=== PATIENT | female | born 1940 | race Caucasian/White ===

== ENCOUNTER → 2018-02-26 | Outpatient (CLI) | payer OTHER | LOC: BHFA 10:00 | PROVIDERS: ATTEND Internal Medicine | DX: R00.2 Palpitations (principal); R06.02 Shortness of breath; R07.9 Chest pain, unspecified; R53.83 Other fatigue ==

== ENCOUNTER → 2018-03-06 | Outpatient (CLI) | payer OTHER | LOC: BHFA 10:00 | PROVIDERS: ATTEND Internal Medicine Cardiovascular Disease | DX: R07.9 Chest pain, unspecified (principal); R00.2 Palpitations ==

== ENCOUNTER → 2018-09-29 | Outpatient (CLI) | payer OTHER | LOC: CIMAGING 14:27 | PROVIDERS: ATTEND Family Medicine | DX: R91.8 Other nonspecific abnormal finding of lung field (principal); R42 Dizziness and giddiness; R53.83 Other fatigue; Z87.891 Personal history of nicotine dependence | CPT/HCPCS: 36415-PO; 71046-PO ==

== ENCOUNTER → 2018-10-09 | Outpatient (CLI) | payer OTHER ==
[~2018-10-09] MED LIST: IOHEXOL 300 mgI/ML (OMNIPAQUE) 150 ML BTL IV ONE
== END ==
LOC: FIMAGING 10:06
PROVIDERS: ATTEND Family Medicine
DX: R91.8 Other nonspecific abnormal finding of lung field (principal); R93.89 Abnormal findings on diagnostic imaging of other specified body structures; J90 Pleural effusion, not elsewhere classified
CPT/HCPCS: 71260; Q9967

== ENCOUNTER 2018-10-20 10:00 | Day surgery (SDC) | payer OTHER ==
[2018-10-20] MEDS ORDERED: MIDAZOLAM 2 MG/2 ML VIAL ONE (10:33)
[2018-10-20] MEDS ORDERED: fentaNYL 100 MCG/2 ML INJ ONE (10:34)
[2018-10-20] MEDS ORDERED: GLUCAGON HCL 1 MG VIAL IVP PRN (11:04)
[2018-10-20] MEDS ORDERED: MIDAZOLAM 2 MG/2 ML VIAL IVP PRN (11:04)
[2018-10-20] MEDS ORDERED: fentaNYL 100 MCG/2 ML INJ IVP PRN (11:04)
[2018-10-20] MEDS ORDERED: NALOXONE HCL 0.4 MG/ML INJ IVP PRN (11:04)
[2018-10-20] MEDS ORDERED: PROTAMINE SULFATE 50 MG/5 ML VIAL IVP PRN (11:04)
[2018-10-20] MEDS ORDERED: MEPERIDINE 25 MG/ML SYR IVP PRN (11:04)
[2018-10-20] MEDS ORDERED: ALTEPLASE 2 MG VIAL IVP PRN (11:04)
[2018-10-20] MEDS ORDERED: HEPARIN 10,000 UNIT/10 ML MDV (1,000 UNIT/ML) IVP PRN (11:04)
[2018-10-20] MEDS ORDERED: FLUMAZENIL 0.5 MG/5 ML MDV IVP PRN (11:04)
[2018-10-20] MEDS ORDERED: NS 1,000 ML IV SCH (11:15)
[2018-10-20] MEDS ORDERED: LIDOCAINE 1% 300 MG/30 ML SDV ONE (11:31)
[2018-10-20 11:35] LABS: INR 0.93 (0.83-1.16); PROTIME(PATIENT) 12.7 SEC (12.0-15.0)
--- NOTE | 2018-10-20 12:17 | PDPROPOC ---
Sedation Plan of Care ASA Classification: ASA 3 Mallampati Score: Class 2 Mallampati Reference Image:
--- NOTE | 2018-10-20 12:17 | PDRADPRE ---
Radiology History & Physical Indication for procedure: lung nodule/mass Home medications: Dexamethasone 4 mg PO BID 10/15/18 [Last Taken Unknown] Allergies/Adverse Reactions: tetracycline Allergy (Severe, Verified 10/15/18 14:06) Rash Mental status: A&Ox3
[2018-10-20] MEDS ORDERED: oxyCODONE IR 5 MG TAB PO PRN (12:18)
[2018-10-20] MEDS ORDERED: ONDANSETRON 4 MG/2 ML VIAL IVP PRN (12:18)
--- NOTE | 2018-10-20 12:18 | PDRADPN ---
Radiology Procedure Note Date of Procedure: 10/20/18 Radiologist: Deysi Rowe Anesthesia: IV Sedation Pre-op Diagnosis: lung and liver masses Post-op Diagnosis: same Procedure: us-guided liver mass biopsy Inf/Abcess present in the surg proc area at time of surgery?: No
[2018-10-20 15:04] VITALS: BP 136/65
== END 2018-10-20 15:19 | disposition home or self-care (01) ==
LOC: FIMAGING 10:00
PROVIDERS: ATTEND Internal Medicine Hematology & Oncology
PROC: 0FB13ZX Excision of Right Lobe Liver, Percutaneous Approach, Diagnostic (ICD-10-PCS; principal; 2018-10-20 12:40)
DX: C78.7 Secondary malignant neoplasm of liver and intrahepatic bile duct (principal); R91.8 Other nonspecific abnormal finding of lung field; E78.5 Hyperlipidemia, unspecified; Z85.42 Personal history of malignant neoplasm of other parts of uterus; Z85.820 Personal history of malignant melanoma of skin; Z87.891 Personal history of nicotine dependence; Z92.21 Personal history of antineoplastic chemotherapy; Z92.3 Personal history of irradiation; Z80.1 Family history of malignant neoplasm of trachea, bronchus and lung; Z90.710 Acquired absence of both cervix and uterus; Z90.722 Acquired absence of ovaries, bilateral
CPT/HCPCS: J2250; J3010